=== PATIENT | male | born 1965 | race Caucasian/White ===

== ENCOUNTER 2024-11-15 10:00 | Outpatient (AMB) | payer BC, SELFPAY ==
--- NOTE | 2024-11-15 09:41 | A.OFFPC_ITS ---
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 Accompanied by: Self / Same As Patient Allergies No Known Allergies [No Known Allergies*] Allergy (Verified 11/15/24 09:41) Tobacco use date assessed: 11/15/24 Dental Screening Dental Screen Date: 11/15/24 Did you have a dental visit in the last 12 months?: Yes Did you have a dental problem in the last 6 months where you did not have access to dental care?: No [facility] Medical History (Updated 11/15/24 @ 10:46 by Herve Bundy MD) Obstructive sleep apnea Generalized anxiety disorder Surgical History History of colonoscopy (~03/18/16) Family History (Updated 11/15/24 @ 10:17 by Kristen Cui MA) Mother Lung abnormality Father Heart attack Social History Housing: House Patient Tobacco Use Status: Never used Tobacco e-Cigarette/Vaping Use: Never Used service: No Current occupational status: employed Cognitive needs: No Hearing needs: No Vision needs: Yes (reading glasses) Questionnaire PHQ-9 Over the last 2 weeks, how often have you been bothered by any of the following problems? 1. Little interest or pleasure in doing things: not at all 2. Feeling down, depressed, or hopeless: not at all 3. Trouble falling or staying asleep, or sleeping too much: not at all 4. Feeling tired or having little energy: not at all 5. Poor appetite or overeating: not at all 6. Feeling bad about yourself - or that you are a failure or have let yourself or your family down: not at all 7. Trouble concentrating on things, such as reading the newspaper or watching television: not at all 8. Moving or speaking so slowly that other people could have noticed. Or the opposite - being so fidgety or restless that you have been moving around a lot more than usual: not at all 9. Thoughts that you would be better off or of hurting yourself in some way: not at all Total score: 0 Source: Developed by Drs. Brad Smith, Izabella Sinha, Arden Adame and colleagues, with an educational ana maría from [employer]. Thrive Questionnaire Date Thrive assessed: 11/15/24 I am a: Patient Within the past 12 months, did the food you bought not last and you didn't have the money to get more?: Never true Within the past 12 months, did you worry whether your food would run out before you got money to buy more?: Never true Do you have trouble paying for medicines?: No Do you have trouble getting transportation to medical appointments?: No Do you have trouble paying your heating and electricity bill?: No Do you have trouble taking care of your child, family member or friend?: No Do you have trouble with day-to-day activities such as bathing, preparing meals, shopping, managing finances, etc.?: No Are you currently unemployed and looking for a job?: No Are you interested in more education?: No THRIVE Score: 0 AUDIT C Alcohol Use Questionnaire (AUDIT-C) 1. How often do you have a drink containing alcohol?: Monthly or less 2. How many drinks containing alcohol do you have on a typical day when you are drinking?: 1 or 2 3. How often do you have six or more drinks on one occasion?: Less than monthly Total Score: 2 EVELYN-7 AMB Questionnaire EVELYN-7 Date EVELYN - 7 assessed: 11/15/24 Feeling nervous, anxious, or on edge: 0 = Not at all Not being able to stop or control worryin = Not at all Worrying too much about different things: 0 = Not at all Trouble relaxin = Not at all Being so restless that it is hard to sit still: 0 = Not at all Becoming easily annoyed or irritable: 0 = Not at all Feeling afraid as if something awful might happen: 0 = Not at all Total EVELYN-7 score (0-4 normal; 5-9 mild; 10-14 moderate; 15-21 severe): 0 Source: Developed by Izabella Murillo Kurt Kroenke and colleagues, with an educational ana maría from [employer]. Physical exam (Primary Care) Vital Signs: Last Vital Signs Temp 98.4 F 11/15/24 10:12 Pulse 95 11/15/24 10:12 BP 124/80 11/15/24 10:12 Pulse Ox 98 11/15/24 10:12 Oxygen Delivery Method Room Air 11/15/24 10:12 BMI result Body Mass Index 26.3 Tobacco/Smoking Status: Tobacco use Status Tobacco use date assessed 11/15/24 11/15/24 09:42 Patient Tobacco Use Status Never used Tobacco 11/15/24 09:42 e-Cigarette/Vaping Use Never Used 11/15/24 09:42 PHQ-9: PHQ-9 Score PHQ-9: Total score 0 11/15/24 10:18 Thrive Assessment: Date of Thrive Assessment Date Thrive assessed 11/15/24 11/15/24 09:42 Coding Level of Care Code New Pt Level 4 (79048) Complex EM visit Add On G2211 Diagnoses Generalized anxiety disorder F41.1 Obstructive sleep apnea G47.33 Assessment & Plan Assessment & Plan (1) Generalized anxiety disorder: Code(s): F41.1 - Generalized anxiety disorder Category: Medical Plan: Continue Paroxetine at same dosage. (2) Obstructive sleep apnea: Code(s): G47.33 - Obstructive sleep apnea (adult) (pediatric) Category: Medical Plan: Sleep center evaluation for a re study Plan History of Present Illness - The patient is a 59-year-old male presenting with concerns related to obstructive sleep apnea and anxiety management. - Obstructive sleep apnea was diagnosed several years ago; the patient reports using a CPAP device at home which has not provided significant benefit, leading to discontinued use. - There has been no ongoing follow-up or management after the initial diagnosis of sleep apnea. - The patient is currently on paroxetine for generalized anxiety disorder, which effectively controls symptoms. A refill is needed, with approximately 20 days of medication left. 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 - He lives alone and is planning to retire next year. - He can perform daily activities such as cooking, shopping, and driving without any issues, including nighttime driving. Review of Systems - Respiratory: Reports obstructive sleep apnea diagnosis, denies gasping or breathing difficulties during sleep. - Neurological: Denies problems with cognitive function, including decision- making speed. - Psychiatric: Reports anxiety managed by paroxetine. Physical Exam General: Cooperative and healthy appearing Nutritional Appearance: Well nourished Orientation/consciousness: Patient oriented x3 Limitations: No limitations Head: Normal to inspection General: Appearance normal, both eyes and all related structures Neck: Normal visual inspection Chest: Normal palpation of entire chest wall Respiratory: Normal respiratory effort Neurology: Patient oriented x3 Results Plan 1. Obstructive Sleep Apnea - Plan for a re-evaluation and sleep therapy consultation. 2. Generalized Anxiety Disorder - Refill paroxetine for six months and continue monitoring. Discussion Notes I discussed with the patient the importance of reassessing obstructive sleep apnea due to the lack of benefit from current CPAP usage. An evaluation for sleep therapy will be arranged. We agreed on continuing paroxetine therapy for anxiety, as it provides good symptom control. A medication refill was confirmed, and the patient is advised to return for follow-up to monitor the effectiveness of the treatment and address any new issues that may arise. Continued compliance with current medication and potential updates to therapy based on new evaluations were also highlighted. Patient Instructions - Schedule a sleep therapy evaluation to reassess your sleep apnea. - Continue taking paroxetine as prescribed. - Get the blood work done while fasting for 12 hours. - Follow up as needed if symptoms of sleep apnea persist or worsen. - Continue your daily activities and reach out if further assistance is needed. Orders: Orders Basic Metabolic Panel Today F41.1 - Generalized anxiety disorder, G47.33 - Obstructive sleep apnea (adult) (pediatric) Complete Blood Count no Diff Today F41.1 - Generalized anxiety disorder, G47.33 - Obstructive sleep apnea (adult) (pediatric) Lipid Panel Today F41.1 - Generalized anxiety disorder, G47.33 - Obstructive sleep apnea (adult) (pediatric) Liver Panel Today F41.1 - Generalized anxiety disorder, G47.33 - Obstructive sleep apnea (adult) (pediatric) Thyroid Stimulating Hormone Today F41.1 - Generalized anxiety disorder, G47.33 - Obstructive sleep apnea (adult) (pediatric) UA and rflx microscopic Today F41.1 - Generalized anxiety disorder, G47.33 - Obstructive sleep apnea (adult) (pediatric) Medications: Refilled paroxetine HCl 20 mg PO DAILY 90 tabs 3RF
[2024-11-15 10:12] VITALS: BP 124/80; PULSE 95; TEMP 36.9; O2SAT 98; BMI 26.3
== END 2024-11-15 10:46 | disposition home or self-care (01) ==
LOC: HO.HMCHD 10:00
PROVIDERS: PCP Internal Medicine; Visit Provider Internal Medicine
DX: F41.1 Generalized anxiety disorder (principal); G47.33 Obstructive sleep apnea (adult) (pediatric)

== ENCOUNTER → 2024-11-15 10:00 | Outpatient (BNVA) | payer BC, SELFPAY | PROVIDERS: PCP Internal Medicine; Visit Provider Internal Medicine ==

== ENCOUNTER 2025-05-05 14:29 | Outpatient (AMB) | payer BC, SELFPAY ==
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
[2025-05-05 14:33] VITALS: BP 158/88; PULSE 83; RESP 18; TEMP 36.4; O2SAT 98; BMI 25.5
--- OUTSIDE RECORDS SUMMARY | 2025-05-05 19:52 | XMS_ITS | Patient Health Record ---
Author Organization [facility] Address [address] [place] [address] Care Team Providers Care Manager Fraud Name Role Phone Octavia (RETIRED) Sagar MOODY Primary Care Provide Brad Woods Unavailable [phone] Allergies Allergen (clinical drug ingredient) Drug/Non Drug Allergy documented on EMR Reaction Allergy Type Onset Date Status poison fidel (uncoded) Unknown Allergy Active seasonal allergies (uncoded) Unknown Allergy Active Reason For Referral No Information Medications Medication SIG (Take, Route, Frequency, Duration) Notes Start Date End Date Status PARoxetine HCl 20 MG Tablet TAKE 1 TABLET BY MOUTH EVERY DAY Oral; Duration: 60 Active Social History Social History Additional Details Category Social Info Options Details Miscellaneous: Marital status: single 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 [employer] Notes: Nonsmoker; no sig alcohol Nonsmoker; no sig alcohol Problems Problem Type SNOMED Code ICD Code Onset Dates Problem Status W/U Status Risk Notes Problem Screening for malignant neoplasm of colon (643000921) Encounter for screening for malignant neoplasm of colon (Z12.11) Active confirmed Problem Screening for malignant neoplasm of rectum ([id number]) Encounter for screening for malignant neoplasm of rectum (Z12.12) Active confirmed Problem Preprocedural examination ([id number]) Preprocedural examination (Z01.818) Active confirmed Plan Of Treatment Future Test Test Name Order Date COLONOSCOPY 11/14/2015 Insurance Providers Payer Name Payer Address Payer Phone Subscriber Number Group Number Insured Name Patient Relationship to Insured Coverage Start Date Coverage End Date [facility] [employer] [facility] [address] [place] [address] [id number] Self - patient is the insured Medical (General) History Medical History History ICD Code Denies MS,DM,CVA,Lung disease,renal dise ase Anxiety/stress Surgical History Surgery Date(Month/Year) wisdom teeth extraction
== END 2025-05-05 14:56 | disposition home or self-care (01) ==
PROVIDERS: PCP Student in an Organized Health Care Education/Training Program; Visit Provider Student in an Organized Health Care Education/Training Program
DX: Z00.00 Encounter for general adult medical examination without abnormal findings (principal); I10 Essential (primary) hypertension; M54.2 Cervicalgia

== ENCOUNTER 2025-05-05 14:29 | Outpatient (REF) | payer BC, SELFPAY ==
--- NOTE | ~2025-05-05 | XR_ITS ---
EXAMINATION: XR SHOULDER, LEFT CLINICAL INFORMATION: M25.512 - Pain in left shoulder COMPARISON: None available. TECHNIQUE: Four views of the left shoulder. FINDINGS: No evidence of acute fracture or dislocation. Glenohumeral and acromioclavicular alignment is anatomic with normal joint space. No abnormal soft tissue calcifications. XR/XR shoulder LT min 2V IMPRESSION: No acute findings Electronically signed by: Balaji Bolden MD 05/06/2025 02:33 PM EST
--- NOTE | ~2025-05-05 | XR_ITS ---
EXAMINATION: XR CERVICAL SPINE CLINICAL INFORMATION: M25.512 - Pain in left shoulder COMPARISON: None available. TECHNIQUE: 8 views of the cervical spine obtained FINDINGS: The cervical spine is visualized from C1-upper C7 level. Vertebral body alignment is maintained. No evidence of acute fracture. Vertebral body heights are maintained. Predens space is maintained. No prevertebral soft tissue swelling. Severe C5-6, moderate C6-7 disc degeneration. Multilevel facet degeneration. Multilevel neural foramen narrowing bilaterally, more prominent in the right side. Lung apices are clear. XR/XR cervical spine 4V IMPRESSION: No acute osseous findings. Cervical spondylosis. Severe C5-6 disc degeneration.. Electronically signed by: Balaji Bolden MD 05/06/2025 02:36 PM [place]
[2025-05-05 15:17] LABS: MANUAL DIFF FLAG NO
[2025-05-05 15:37] LABS: Hematocrit 42.4 % (42.0-52.0); Hemoglobin 14.0 g/dl (14.0-18.0); Imm Gran Abs Auto 0.02 X10*3/uL (0.00-0.03); Imm Gran Pct Auto 0.2 % (0.0-0.4); Lymphocytes Absolute Auto 2.8 X10*3/uL (1.2-4.9); Mean Corpuscular HGB Conc 33.0 g/dl (31.0-36.0); Mean Corpuscular Hemoglobin 29.1 pg (27.0-33.0); Mean Corpuscular Volume 88.1 fL (80.0-98.0); NRBC Abs Auto 0.000 X10*3/uL (0.0-0.012); NRBC Pct Auto 0.0 /100WBC (0.0-0.2); Platelet Count 292 X10*3/uL (160-400); Red Blood Count 4.81 X10*6/uL (4.60-5.80); White Blood Count 10.6 X10*3/uL (4.8-10.8)
[2025-05-05 15:56] LABS: Microalbum/Creatinine Ratio Ur 4.3 ug/mg cr (<30)
[2025-05-05 16:06] LABS: Alanine Aminotransferase 31 U/L (0-40); Albumin Level 4.8 g/dL (3.5-5.0); Alkaline Phosphatase 50 U/L (39-117); Anion Gap 11 (12-20); Aspartate Amino Transferase 32 U/L (5-37); Blood Urea Nitrogen 11 mg/dL (9-16); Calcium 9.6 mg/dL (8.4-10.2); Carbon Dioxide 28 mmol/L (22-29); Chloride 105 mmol/L (96-108); Cholesterol 249 mg/dL (<200); Estimated Glomerular Filt Rate > 60; HDL Cholesterol 44 mg/dL (>40); Potassium 4.2 mmol/L (3.3-5.1); Sodium 140 mmol/L (135-145); Total Protein 7.4 g/dL (6.5-8.0); Triglycerides 223 mg/dL (<150)
[2025-05-06 07:51] LABS: Syphilis Screen Nonreactive (Nonreactive)
[2025-05-06 08:30] LABS: HBS Num1 0.00 mIU/mL (0-7.99); HBc Num1 0.05 S/CO (0.00-0.79); HBsAGNum1 0.36 S/CO (0.00-0.99); HIV Num 1 0.07 S/CO (0.00-0.99); Hepatitis A Antibody IgM 0.14 Index (0-0.79); Hepatitis B Surface Antigen Negative (Negative); ~HepC Num1 0.09 S/CO (0.00-0.79); ~Hepatitis A Antibody IgM Nonreactive (Nonreactive); ~Hepatitis B Surface Antibody NONREACTIVE (Nonreactive); ~Hepatitis C Antibody Nonreactive (Nonreactive)
== END 2025-05-05 14:30 | disposition home or self-care (01) ==
LOC: HO.XRAY 14:29
PROVIDERS: PCP Student in an Organized Health Care Education/Training Program; Visit Provider Student in an Organized Health Care Education/Training Program
DX: Z00.00 Encounter for general adult medical examination without abnormal findings (principal); M25.512 Pain in left shoulder; M54.2 Cervicalgia; I10 Essential (primary) hypertension; Z79.899 Other long term (current) drug therapy
CPT/HCPCS: 36415; 72050; 73030; 80053; 80061; 82043; 82306; 82570; 83036; 84443; 85025; 86704; 86706; 86709; 86780; 86803; 87340; 87389

== ENCOUNTER → 2025-05-05 15:20 | Outpatient (BNV) | payer BC, SELFPAY | PROVIDERS: PCP Student in an Organized Health Care Education/Training Program; Visit Provider Radiology Diagnostic Ultrasound | DX: M25.512 Pain in left shoulder (principal); M54.2 Cervicalgia | CPT/HCPCS: 72050; 73030 ==